=== PATIENT | female | born 1955 | race African-American/Black ===

== ENCOUNTER 2023-05-10 04:12 | Day surgery (SDC) | payer OTHER ==
[2023-05-09 08:55] VITALS: BMI 24.2
[2023-05-10] MEDS ORDERED: ceFAZolin SODIUM 1 GM VIAL IVPB ONE ×2 (10:13→11:13)
[2023-05-10] MEDS ORDERED: LIDOCAINE HCL 1%, 10 MG/ML (20ML VIAL) INF ONE ×2 (11:09→11:21)
[2023-05-10] MEDS ORDERED: oxyCODONE HCL 5 MG TABLET PO PRN ×2 (12:50)
[2023-05-10] MEDS ORDERED: ONDANSETRON 4 MG/2 ML VIAL IVPUSH PRN (12:50)
[2023-05-10] MEDS ORDERED: LACTATED RINGERS SOLUTION 1,000 ML IV SCH (13:00)
[2023-05-10] MEDS ORDERED: FENTANYL CITRATE/PF 50 MCG/ML VIAL ONE ×3 (13:01→14:10)
[2023-05-10 18:50] VITALS: BP 136/71; PULSE 78; RESP 16; TEMP 97.2
== END 2023-05-10 19:25 | disposition home or self-care (01) ==
LOC: JASU-SURG 04:12
PROVIDERS: ATTEND Surgery
PROC: 0HTT0ZZ Resection of Right Breast, Open Approach (ICD-10-PCS; principal; 2023-05-10 10:00)
DX: D05.11 Intraductal carcinoma in situ of right breast (principal)
CPT/HCPCS: 88307-TC; 88309-TC; 94760